=== PATIENT | female | born 1940 | race Two or more races ===

== ENCOUNTER 2019-07-15 17:15 | Inpatient (IN) | payer MEDICARE, OTHER ==
[~2019-07-15] VITALS: Ht 152.4 cm; Wt 59.0 kg
[2019-07-15] MEDS ORDERED: SIMV-46 PO (17:24)
[2019-07-15] MEDS ORDERED: ACET-2605 PO (17:24)
[2019-07-15] MEDS ORDERED: PARO25TA16 PO (17:24)
[2019-07-15] MEDS ORDERED: CICL6.6S TP (17:24)
[2019-07-15 20:01] VITALS: BP 138/74
[2019-07-15] MEDS ORDERED: TEMAZEPAM 7.5 MG CAPSULE PO PRN (20:15)
[2019-07-15] MEDS ORDERED: MAGNESIUM HYDROXIDE 30 ML LIQUID UDC PO PRN (20:15)
[2019-07-15] MEDS ORDERED: LORAZEPAM 1 MG TABLET PO PRN (20:15)
[2019-07-15] MEDS ORDERED: ACETAMINOPHEN 325 MG TABLET PO PRN (20:15)
[2019-07-16 07:17] LABS: BASOPHILS % (AUTO) 0.2 % (0.0-2.0); EOSINOPHILS % (AUTO) 0.6 % (0.0-7.0); HEMATOCRIT 46.5 % (31.2-41.9); HEMOGLOBIN 15.3 g/dL (10.9-14.3); MEAN CORPUSCULAR HEMOGLOBIN 30.3 uug (24.7-32.8); MEAN CORPUSCULAR HGB CONC 33 g/dL (32.3-35.6); MEAN CORPUSCULAR VOLUME 92.3 fL (75.5-95.3); MONOCYTES # (AUTO) 0.6 K/uL (2.0-10.0); MONOCYTES % (AUTO) 9.4 % (0.0-11.0); NEUTROPHILS # (AUTO) 4.9 K/uL (1.8-8.9); NEUTROPHILS % (AUTO) 74.8 % (38.5-71.5); PLATELET COUNT (AUTO) 305 K/uL (179-408); RED BLOOD CELL COUNT(AUTO) 5.03 MIL/uL (3.63-4.92); WHITE BLOOD COUNT (AUTO) 6.6 K/uL (3.8-11.8)
[2019-07-16 07:23] LABS: BILIRUBIN,TOTAL 0.7 mg/dL (0.2-1.0); CREATININE 0.6 mg/dL (0.6-1.3); POTASSIUM 3.5 mmol/L (3.5-5.1); TOTAL PROTEIN, SERUM 5.9 g/dL (6.4-8.2)
[2019-07-16 07:51] VITALS: BP 124/63
[2019-07-16 16:00] VITALS: BP 135/75
[2019-07-16 20:29] VITALS: BP 133/77
[2019-07-16] MEDS: SIMVASTATIN 10 MG TABLET PO SCH (21:10)
[2019-07-17 07:30] VITALS: BP 152/80
[2019-07-17] MEDS: risperiDONE 0.5 MG TABLET PO SCH ×2 (09:41→20:24)
[2019-07-17 15:19] VITALS: BP 106/47
[2019-07-17 20:18] VITALS: BP 118/60
[2019-07-17] MEDS: SIMVASTATIN 10 MG TABLET PO SCH (20:24)
[2019-07-17] MEDS: MIRTAZAPINE 15 MG TABLET PO SCH (20:24)
[2019-07-18 07:30] VITALS: BP 120/63
[2019-07-18] MEDS: risperiDONE 0.5 MG TABLET PO SCH ×2 (08:20→20:21)
[2019-07-18 15:01] VITALS: BP 109/55
[2019-07-18] MEDS: MAG HYDROX/AL HYDROX/SIMETH 30 ML LIQUID UDC PO PRN ×2 (18:58→19:06)
[2019-07-18] MEDS: DOCUSATE SODIUM 100 MG CAPSULE PO SCH (20:21)
[2019-07-18] MEDS: MIRTAZAPINE 15 MG TABLET PO SCH (20:21)
[2019-07-18] MEDS: SIMVASTATIN 10 MG TABLET PO SCH (20:21)
[2019-07-18 23:15] VITALS: BP 120/65
[2019-07-19 07:30] VITALS: BP 118/62
[2019-07-19] MEDS: risperiDONE 0.5 MG TABLET PO SCH ×2 (08:29→20:10)
[2019-07-19] MEDS: DOCUSATE SODIUM 100 MG CAPSULE PO SCH ×2 (08:29→20:10)
[2019-07-19 16:00] VITALS: BP 112/60
[2019-07-19] MEDS: SIMVASTATIN 10 MG TABLET PO SCH (20:10)
[2019-07-19] MEDS: MIRTAZAPINE 15 MG TABLET PO SCH (20:10)
[2019-07-19 20:57] VITALS: BP 111/61
[2019-07-20 07:30] VITALS: BP 127/56
[2019-07-20] MEDS: DOCUSATE SODIUM 100 MG CAPSULE PO SCH ×2 (08:51→20:15)
[2019-07-20] MEDS: risperiDONE 0.5 MG TABLET PO SCH ×2 (08:51→20:15)
[2019-07-20 15:10] VITALS: BP 110/59
[2019-07-20 17:21] LABS: *BILIRUBIN,URIN NEGATIVE (NEGATIVE); *BLOOD, URINE NEGATIVE (NEGATIVE); *CLARITY,URINE SLIGHTLY CLOUDY (CLEAR); *COLOR,URINE YELLOW (YELLOW); *KETONES,URINE TRACE (NEGATIVE); *UROBILINOGEN,URINE >=8.0 E.U./dl (NORMAL); LEUKOCYTE ESTERASE ,URINE NEGATIVE (NEGATIVE); NITRITE, URINE NEGATIVE (NEGATIVE); PH,URINE 8.5 (5.0-8.0); UGLUCOSE NEGATIVE (NEGATIVE)
[2019-07-20 17:31] LABS: BACTERIA,URINE NONE SEEN /HPF (NONE SEEN); MUCUS,URINE MANY /LPF (0-FEW); RBC,URINE 0-3 /HPF (0-3); SQUAMOUS EPITHELIAL CELL,UR MODERATE /HPF (NONE SEEN); URINE AMORPHOUS PHOSPHATES MANY /HPF; WBC,URINE 0-3 /HPF (0-3)
[2019-07-20] MEDS: SIMVASTATIN 10 MG TABLET PO SCH (20:15)
[2019-07-20] MEDS: MIRTAZAPINE 15 MG TABLET PO SCH ×2 (20:15→21:00)
[2019-07-20 20:38] VITALS: BP 135/75
[2019-07-21 07:30] VITALS: BP 146/65
[2019-07-21] MEDS: risperiDONE 0.5 MG TABLET PO SCH ×2 (08:21→20:11)
[2019-07-21] MEDS: DOCUSATE SODIUM 100 MG CAPSULE PO SCH ×2 (08:22→20:11)
[2019-07-21 15:03] VITALS: BP 110/60
[2019-07-21 20:00] VITALS: BP 115/62
[2019-07-21] MEDS: SIMVASTATIN 10 MG TABLET PO SCH (20:11)
[2019-07-21] MEDS: MIRTAZAPINE 15 MG TABLET PO SCH (20:11)
[2019-07-22 07:30] VITALS: BP 148/70
[2019-07-22] MEDS: DOCUSATE SODIUM 100 MG CAPSULE PO SCH ×2 (08:46→21:44)
[2019-07-22] MEDS: risperiDONE 0.5 MG TABLET PO SCH ×2 (08:47→21:44)
[2019-07-22] MEDS: CEphaleXIN 500 MG CAPSULE PO SCH ×2 (14:44→21:44)
[2019-07-22 16:00] VITALS: BP 116/62
[2019-07-22 20:13] VITALS: BP 120/60
[2019-07-22] MEDS: SIMVASTATIN 10 MG TABLET PO SCH (21:44)
[2019-07-22] MEDS: MIRTAZAPINE 15 MG TABLET PO SCH (21:44)
[2019-07-23] MEDS: CEphaleXIN 500 MG CAPSULE PO SCH ×2 (06:41→13:46)
[2019-07-23 07:30] VITALS: BP 145/76
[2019-07-23] MEDS: risperiDONE 0.5 MG TABLET PO SCH (08:54)
[2019-07-23] MEDS: DOCUSATE SODIUM 100 MG CAPSULE PO SCH (08:54)
[2019-07-23 16:00] VITALS: BP 113/72
== END 2019-07-23 17:15 | disposition home or self-care (01) | DRG 885 ==
LOC: ER 17:19 → GPS 18:14
PROVIDERS: ADMIT Psychiatry & Neurology Psychiatry; ATTEND Internal Medicine
DX: F32.3 Major depressive disorder, single episode, severe with psychotic features (principal); G93.41 Metabolic encephalopathy; E44.0 Moderate protein-calorie malnutrition; N39.0 Urinary tract infection, site not specified; E78.5 Hyperlipidemia, unspecified; K59.00 Constipation, unspecified; Z91.14 Patient's other noncompliance with medication regimen; B96.4 Proteus (mirabilis) (morganii) as the cause of diseases classified elsewhere; R73.03 Prediabetes
CPT/HCPCS: 36415; 85025; 87077; 87086; A4663